=== PATIENT | female | born 1980 | race Caucasian/White ===

== ENCOUNTER → 2023-02-24 12:19 | Outpatient (CLI) | payer BC, SELFPAY ==
--- NOTE | ~2023-02-24 | MM_ITS ---
EXAMINATION: MM screening pauline BI w blaine HISTORY: Screening TECHNIQUE: Craniocaudal and mediolateral oblique 3-D tomosynthesis images were obtained and synthetic 2-D images were generated. CAD analysis was submitted and interpreted. COMPARISON: No prior mammogram is available for comparison at this institution. BREAST PARENCHYMAL COMPOSITION: Breast composed of scattered areas of fibroglandular density FINDINGS: There are scattered bilateral breast asymmetries. There is no architectural distortion or s uspicious cluster of calcifications. IMPRESSION: 1. Bilateral breast asymmetries. 2. Additional mammographic views and possible breast ultrasound are recommended. BI-RADS Category 0: Incomplete: Needs additional imaging evaluation. Reviewed, dictated and finalized at location A. IT OFFICER IMPRESSION: 1. Bilateral breast asymmetries. 2. Additional mammographic views and possible breast ultrasound are recommended . BI-RADS Category 0: Incomplete: Needs additional imaging evaluation.
== END ==
PROVIDERS: PCP Nurse Practitioner Family; Visit Provider Nurse Practitioner Family
DX: Z12.31 Encounter for screening mammogram for malignant neoplasm of breast (principal); R92.8 Other abnormal and inconclusive findings on diagnostic imaging of breast
CPT/HCPCS: 77063; 77067

== ENCOUNTER 2023-04-13 08:20 | Outpatient (CLI) | payer BC, SELFPAY ==
--- NOTE | ~2023-04-13 | MMUS_ITS ---
EXAMINATION: MM diagnostic pauline BI w blaine, US breast BI complete HISTORY: Follow-up breast asymmetries TECHNIQUE: Additional 3-D tomosynthesis images of the breasts were performed and synthetic 2-D images were generated. CAD analysis was submitted and interpreted. High resolution bilateral complete breas t ultrasound was performed. COMPARISON: 02/24/2023 BREAST PARENCHYMAL COMPOSITION: BREAST PARENCHYMAL COMPOSITION: There are scattered areas of fibroglandular density. FINDINGS: MAMMOGRAPHIC FINDINGS: There are no suspicious masses, calcifications or architectural distortion with spot compression or m ediolateral views. ULTRASOUND: Complete bilateral US of all 4 quadrants of the breasts and retroareolar region was reviewed. Right breast: At 9:00, 4 cm from the nipple there is a 6 mm cyst. Left breast: At 6:00, 6 cm from the nipple there is an oval parallel oriented hypoechoic mass with lo w-level internal echoes measuring 7 mm, likely a complicated cyst. IMPRESSION: 1. No evidence for malignancy in the right breast. Probable benign complicated cyst of the left breas t at 6:00, 6 cm from the nipple. 2. Recommend 6 month follow-up Limited left breast ultrasound. BI-RADS category 3, probably benign findings. Reviewed, dictated and finalized at location A. NET DEVELOPER IMPRESSION: 1. No evidence for malignancy in the right breast. Probable benign complicated cyst of the left breast at 6:00, 6 cm from the nipple. 2. Recommend 6 month follow-up Limited left breast ultrasound. BI-RADS category 3, probably benign findings.
== END 2023-04-13 08:21 ==
PROVIDERS: PCP Nurse Practitioner Family; Visit Provider Nurse Practitioner Family
DX: N64.89 Other specified disorders of breast (principal)
CPT/HCPCS: 76641; 77062; 77066; G0279